=== PATIENT | male | born 1985 | race African-American/Black ===

== ENCOUNTER 2022-03-07 22:40 | Emergency (ER) | payer SELFPAY ==
[~2022-03-07] VITALS: Ht 182.9 cm; Wt 85.0 kg
[2022-03-07] MEDS ORDERED: MORPHINE SULFATE 4 MG/ML CPJ (NOT FOR IM USE) IV STA (22:43)
[2022-03-07] MEDS ORDERED: ONDANSETRON HCL 4MG/2ML INJ IV STA (22:43)
[2022-03-07] MEDS ORDERED: SODIUM CHLORIDE 0.9% 1,000 ML IV ONE ×2 (22:45→23:30)
[2022-03-07] MEDS ORDERED: CEFAZOLIN 1000MG PREMIX 50 ML IV ONE (22:45)
[2022-03-07] MEDS ORDERED: TETANUS, DIPHTHERIA, PERTUSSIS VAC/PF 0.5ML (>10YR OLD) IM ONE (22:45)
[2022-03-07 23:00] LABS: BASOPHILS % 0.7 % (0.0-2.0); EOSINOPHILS % 1.5 % (0.0-5.0); HEMOGLOBIN. 14.6 g/dL (14.0-18.0); LYMPHOCYTES % 52.9 % (20.0-50.0); MEAN CORPUSCULAR HEMOGLOBIN 33.5 pg (28.0-32.0); MEAN CORPUSCULAR VOLUME 96.7 fL (80.0-94.0); MEAN PLATELET VOLUME 7.8 fl (7.4-10.4); MONOCYTES % 8.1 % (2.0-8.0); NEUTROPHILS % 36.8 % (40.0-76.0); PLATELET 264 x1000/uL (130-400); RED BLOOD CELL COUNT 4.35 mill/uL (4.7-6.1); RED CELL DISTRIBUTION WIDTH 12.1 % (11.6-14.6)
[2022-03-07 23:10] LABS: CHLORIDE 109 mEq/L (98-107)
[2022-03-07 23:21] LABS: PARTIAL THROMBOPLASTIN TIME < 21.0 sec (23.4-31.0); PROTHROMBIN TIME 10.3 sec (9.6-11.0)
[2022-03-07] MEDS ORDERED: IOHEXOL-350 100 ML BOTTLE ONE (23:45)
[2022-03-07] MEDS ORDERED: IOHEXOL-300 100 ML BOTTLE ONE (23:45)
[2022-03-08] MEDS ORDERED: MORPHINE SULFATE 4 MG/ML CPJ (NOT FOR IM USE) IV ONE (00:15)
[2022-03-08 00:30] VITALS: BP 132/75
[2022-03-08 01:20] LABS: CLARITY URINE CLEAR (CLEAR); COLOR URINE YELLOW (YELLOW); KETONES URINE TRACE (NEGATIVE); LEUKOCYTE ESTERASE URINE NEGATIVE (NEGATIVE); NITRITE URINE NEGATIVE (NEGATIVE); OCCULT BLOOD URINE NEGATIVE (NEGATIVE); PH URINE 5.5 (4.5-8.0); PROTEIN URINE NEGATIVE (NEGATIVE); SPECIFIC GRAVITY URINE 1.054 (1.005-1.030)
== END 2022-03-08 01:40 | disposition short-term general hospital (02) ==
LOC: EDBD 22:40 → ER 22:40
DX: S41.032A Puncture wound without foreign body of left shoulder, initial encounter (principal); W34.09XA Accidental discharge from other specified firearms, initial encounter; Y93.89 Activity, other specified; Y92.89 Other specified places as the place of occurrence of the external cause; Y99.8 Other external cause status; F12.10 Cannabis abuse, uncomplicated; F11.10 Opioid abuse, uncomplicated; Y90.4 Blood alcohol level of 80-99 mg/100 ml
CPT/HCPCS: 36415; 71045; 71275; 72170; 73206; 73706; 74174; 80053; 80320; 81003; 83690; 85025; 85610; 85730; 86850; 86900; 86901; 90471; 90715; 96361; 96365; 96375; 96376; 99291; J0690; J2270; J2405; J7030; Q9967; G0480